=== PATIENT | female | born 1970 | race Caucasian/White ===

== ENCOUNTER 2023-10-05 19:03 | Emergency (ER) | payer SELFPAY ==
[~2023-10-05] VITALS: Ht 165.1 cm; Wt 63.6 kg
[2023-10-05 19:06] VITALS: BP 157/107; PULSE 110; RESP 16; TEMP 97.9; O2SAT 99
== END 2023-10-05 19:21 ==
LOC: ER 19:05
DX: F10.129 Alcohol abuse with intoxication, unspecified (principal); V98.8XXA Other specified transport accidents, initial encounter; Y93.89 Activity, other specified; Y92.89 Other specified places as the place of occurrence of the external cause; Y99.8 Other external cause status; Y90.9 Presence of alcohol in blood, level not specified
CPT/HCPCS: 99283

== ENCOUNTER 2025-07-02 12:05 | Emergency (ER) | payer MEDICAID ==
[~2025-07-02] VITALS: Ht 165.1 cm; Wt 55.0 kg
[2025-07-02 12:47] VITALS: BP 176/102; PULSE 90; RESP 18; TEMP 97; O2SAT 99
--- NOTE | 2025-07-02 12:51 | Physician Documentation ---
History of Present Illness ~ Chief Complaint: Medical Clearance Stated Complaint: MED CLEARANCE Time Seen by MD: 12:49 [facility] 54-year-old female presents requesting medical clearance secondary to ongoing ETOH abuse states her last drink was two days ago denies any history of seizures or severe withdrawals. [facility] after being medically cleared Medication Reconciliation Allergies: Coded Allergies: No Known Allergies (Unverified , 10/05/23) Review of Systems All Other Systems at this time: Reviewed and Negative ROS As stated above in the HPI, otherwise all systems are reviewed and negative. Physical Exam Vital Signs: Temperature: 98.1, Source: Oral, Heart Rate: 95, Respiratory Rate: 16, BP: 181/117, Pulse Oximetry: 98, Weight: 55.000 Oxygen Flow Rate: 0 Physical Exam General: Alert, no apparent distress. HEENT: PERRL, EOMI, no injection, moist mucous membranes. Neck: Full range of motion. Respiratory: Lungs clear, no respiratory distress. Chest: No accessory muscle use. Cardiovascular: Regular rate and rhythm, no murmurs. Gastrointestinal: Soft, nontender, nondistended. Bowels sounds present. Extremities: Normal range of motion, no deformity. Neurologic: Oriented x4. Psychiatric: Normal mood and affect. Skin: Normal color, warm and dry. No edema, no ecchymosis. Progress Results/Orders Results/Orders Medications Received in ER Medications (Trade) Dose Ordered Sig/Harper Route PRN Reason Start Time Stop Time Status Last Admin Dose Admin (Catapres tablet) 0.1 mg ONCE ONCE PO 07/02/25 12:15 07/02/25 12:16 DC 07/02/25 12:44 0.1 MG Vital Signs 07/02/25 12:06 Temp 98.1 Pulse 95 Resp 16 B/P (MAP) 181/117 Pulse Ox 98 O2 Flow Rate 0 Medical Decision Making Additional information obtaine: N/A Findings Patient was mildly hypertensive in triage she received clonidine for this at this time she meets criteria for medical clearance and discharge for outpatient therapy Differential Dx:Considerations: Include: Intoxication-Alcohol, Intoxication- Other drug, Personality disorder, Substance abuse disorder, Acute delirium, Closed head injury, Cervical spine injury, Skull fracture, Fracture(s), Abrasion, Contusion, Foreign body, Hematoma, Laceration, Alcohol withdrawl syndrom, Encephalopathy, Hepatitis, Medically stable, Other Departure Disposition: HOME / SELF CARE / HOMELESS Impression: Primary Impression: General medical exam Condition: Improved Additional Instructions: Medically cleared for alcohol recovery Referrals: NO PRIMARY CARE PROVIDER (PCP) Education Educated: Patient Educated regarding: diagnosis Signature Scribe Signature: g Attestation: Scribed for Emergency,Department by Kashmir Henry NP . 07/02/25 12:51 KASHMIR CORDOBA NP Jul 02, 2025 12:51
== END 2025-07-02 12:54 | disposition home or self-care (01) ==
LOC: ER 12:05
DX: Z00.00 Encounter for general adult medical examination without abnormal findings (principal)
CPT/HCPCS: 99283